=== PATIENT | male | born 1985 | race Two or more races ===

== ENCOUNTER 2018-08-16 13:04 | Emergency (ER) | payer OTHER ==
[~2018-08-16] VITALS: Ht 172.7 cm; Wt 78.9 kg
[~2018-08-16 13:04] MED LIST: CYCLOBENZAPRINE10 MG ORAL; NKM; TRAMADOL HCL50 MG ORAL
[2018-08-16 13:11] VITALS: BP 118/67
--- NOTE | 2018-08-16 13:15 | NUR ---
ED Nurse Note: Patient walked in c/o right shoulder pain x 8:45 AM post slip and fall while at work. Pt rates pain at 8/10. Pt is A&O x4, V/S stable with no s/s of acute distress noted at this time. PA evaluating the pt.
[2018-08-16 13:25] VITALS: BP 118/67
[2018-08-16] MEDS: Tylenol #3 tab (300mg/30mg) ORAL ONE ×2 (13:30→13:48)
--- NOTE | 2018-08-16 13:35 | Emergency Room Report ---
History of Present Illness General Chief Complaint: Shoulder Injury Source: Patient Present Illness HPI 32-year-old male presents to the emergency department complaining of localized 8 out of 10 in severity persistent pain in the right shoulder status post mechanical trip and fall while at work. Patient reports he fell forward and landed directly onto his shoulder. Patient denies hitting his head he denies loss of consciousness denies midline neck or back pain and denies nausea or vomiting. Patient reports that he has full movement of the elbow and wrist of that extremity and that his symptoms are very localized to the shoulder primarily anteriorly. Patient reports pain is exacerbated upon attempts to range his shoulder such as lifting his whole arm. He denies paresthesias, open wounds or bleeding. Allergies: Coded Allergies: No Known Allergies (Unverified , 01/18/14) Patient History Past Medical History: see triage record Past Surgical History: none Pertinent Family History: none Reviewed Nursing Documentation: PMH: Agreed; PSxH: Agreed Nursing Documentation-PMH Past Medical History: No Stated History Review of Systems All Other Systems: negative except mentioned in HPI Physical Exam Vital Signs Date Time Temp Pulse Resp B/P (MAP) Pulse Ox O2 Delivery O2 Flow Rate FiO2 08/16/18 13:11 98.2 85 18 118/67 96 Room Air Sp02 EP Interpretation: reviewed, normal General Appearance: no apparent distress, alert, GCS 15, non-toxic Head: normocephalic, atraumatic Eyes: bilateral eye normal inspection, bilateral eye PERRL ENT: hearing grossly normal, normal voice Neck: full range of motion Respiratory: lungs clear, normal breath sounds, speaking full sentences Cardiovascular #1: regular rate, rhythm Musculoskeletal: back normal, gait/station normal, normal range of motion, tender - TTP to the anterior and lateral aspect of the right shoulder, no obvious step-off noted, pain with lifting arm above 45*, NVi distally Neurologic: alert, oriented x3, responsive, motor strength/tone normal, sensory intact, normal gait, speech normal, grossly normal Psychiatric: judgement/insight normal Skin: normal color - no bruising noted, no rash, warm/dry, well hydrated Medical Decision Making PA Attestation Dr. Maguire is my supervising Physician whom patient management has been discussed with. Diagnostic Impression: Primary Impression: Injury of right shoulder Qualified Codes: S49.91XA - Unspecified injury of right shoulder and upper arm , initial encounter ER Course 32-year-old male presents to the emergency department complaining of localized 8 out of 10 in severity persistent pain in the right shoulder status post mechanical trip and fall while at work. Patient reports he fell forward and landed directly onto his shoulder. Patient denies hitting his head he denies loss of consciousness denies midline neck or back pain and denies nausea or vomiting. Patient reports that he has full movement of the elbow and wrist of that extremity and that his symptoms are very localized to the shoulder primarily anteriorly. Patient reports pain is exacerbated upon attempts to range his shoulder such as lifting his whole arm. He denies paresthesias, open wounds or bleeding. Ddx considered but are not limited to Fracture, dislocation, contusion, Sprain/ Strain/Spasm, rotator cuff or labrum injury. Vital signs: are WNL, pt. is afebrile H&PE are most consistent with musculoskeletal injury will perform imaging to r/ o fractures/dislocations. ORDERS: - X-ray : Right Shoulder 3 Views - ED INTERVENTIONS: - Tylenol #3 Pt. Left with refusal of treatment. He changed his mind and declined imaging or pain medications. Last Vital Signs Date Time Temp Pulse Resp B/P (MAP) Pulse Ox O2 Delivery O2 Flow Rate FiO2 08/16/18 13:11 98.2 85 18 118/67 96 Room Air Disposition: ELOPED - Declines Treatmetn or Imaging Condition: Unknown Patient Instructions: Shoulder Pain Additional Instructions: Pt. Left with refusal of treatment and imaging. -- Pt. is capable of making decisions regarding his medical care. Return sooner to ED if new symptoms occur, or current symptoms become worse. - Please note that this Emergency Department Report was dictated using [employer] attendant technology software, occasionally this can lead to erroneous entry secondary to interpretation by the dictation equipment. Anita Reynaga Aug 16, 2018 13:35
--- NOTE | 2018-08-16 13:49 | NUR ---
ED Nurse Note: Patient refused the pain medication and XRay. PA aware.
--- NOTE | 2018-08-16 13:50 | NUR ---
ED Nurse Note: Patient wants to be seen at another facility and states that he wants to be D/C. PA was informed. D/C paperwork printed and signed by patient. Pt verbalized d/c information; ID band removed. Pt took all personal belongings with him; walked out of the ER with steady gait.
== END 2018-08-16 13:50 | disposition left against medical advice (07) ==
LOC: EMR 13:45
DX: S49.91XA Unspecified injury of right shoulder and upper arm, initial encounter (principal); W01.0XXA Fall on same level from slipping, tripping and stumbling without subsequent striking against object, initial encounter; Y92.511 Restaurant or cafe as the place of occurrence of the external cause; Y99.0 Civilian activity done for income or pay
CPT/HCPCS: 99281